=== PATIENT | female | born 2000 | race African-American/Black ===

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

== ENCOUNTER 2022-05-07 10:49 | Emergency (ER) | payer OTHER ==
[~2022-05-07] VITALS: Ht 160 cm; Wt 82.1 kg
[2022-05-07 12:14] VITALS: BP 121/74; TEMP 98
== END 2022-05-07 12:14 | disposition home or self-care (01) ==
LOC: ED 10:49
DX: S91.332A Puncture wound without foreign body, left foot, initial encounter (principal); W45.0XXA Nail entering through skin, initial encounter; Y92.89 Other specified places as the place of occurrence of the external cause
CPT/HCPCS: 96372; 99283; J0696